=== PATIENT | male | born 1940 | race Caucasian/White ===

== ENCOUNTER 2016-11-06 18:25 | Emergency (ER) | payer BC ==
[2016-11-06] MEDS ORDERED: BSS OPTH.SOL* BTL ONE (19:01)
[2016-11-06] MEDS ORDERED: Tetracaine 0.5% OPTH.SOL 4 ML* 1 DROP BTL ONE (19:01)
[2016-11-06] MEDS ORDERED: Fluorescein Sodium TOPICAL* 1 MG TEST ONE (19:01)
[2016-11-06 19:02] VITALS: BP 136/62
--- NOTE | 2016-11-06 19:14 | UC ---
Eye Complaint HPI - HPI Summary HPI Summary: 76 y/o male presents to the urgent care c/o LF eye irritation since this morning. He reports this morning when he woke up, he felt something in his eye and since then he has been rubbing his eye. Now he has a yellowish eye discharge. He denies pain, photophobia, BARBA, SOB, chest pain, N/V/D. - History of Current Complaint Chief Complaint: UCEye Stated Complaint: LEFT EYE IRRITATION Time Seen by Provider: 11/06/16 18:54 Hx Obtained From: Patient Onset/Duration: Sudden Onset, Lasting Hours Timing: Constant Severity Initially: Mild Severity Currently: Moderate Pain Intensity: 0 Pain Scale Used: 0-10 Numeric Location of Injury: Conjunctiva Character: Foreign Body Sensation Aggravating Factor(s): Blinking Alleviating Factor(s): Nothing Associated Signs And Symptoms: Positive: Drainage (Purulent). Negative: Photophobia, Vision Impairment Right, Vision Impairment Left, Fever, Swelling Related History: Foreign Body - Risk Factors Penetrating Injury Risk Factor: Negative Globe Rupture Risk Factors: Negative Acute Glaucoma Risk Factors: Negative Optic Artery Occlusion Risk Factors: Negative - Allergies/Home Medications Allergies/Adverse Reactions: Allergies Allergy/AdvReac Type Severity Reaction Status Date / Time No Known Allergies Allergy Verified 11/06/16 18:57 Home Medications: Home Medications 2 Shots For Cancer 1 dose INJ SEE INSTRUCTIONS 11/06/16 [History Confirmed 11/06] PMH/Surg Hx/FS Hx/Imm Hx Previously Healthy: Yes Cardiovascular History: Hypertension - Surgical History Surgical History: Yes Surgery Procedure, Year, and Place: Partial Bowel Removal, 2005, [facility]; Herniorrhaphy - Family History Known Family History: Positive: Unknown - Social History Occupation: Retired Lives: With Family Alcohol Use: Rare Substance Use Type: None Smoking Status (MU): Never Smoked Tobacco - Immunization History Most Recent Influenza Vaccination: [id number] Review of Systems Constitutional: Negative Skin: Negative Eyes: Drainage - yellowish discharge, Eye Redness, Other - foreing body sensation ENT: Negative Respiratory: Negative Cardiovascular: Negative Gastrointestinal: Negative Genitourinary: Negative Motor: Negative Neurovascular: Negative Musculoskeletal: Negative Neurological: Negative Psychological: Negative All Other Systems Reviewed And Are Negative: Yes Physical Exam Triage Information Reviewed: Yes Appearance: Well-Appearing, No Pain Distress, Well-Nourished Vital Signs: Initial Vital Signs Temp 99.4 F 11/06/16 18:49 Pulse 69 11/06/16 18:49 Resp 14 11/06/16 18:49 BP 136/62 11/06/16 18:49 Pulse Ox 97 11/06/16 18:49 Vital Signs Reviewed: Yes Eyes: Positive: Conjunctiva Inflamed - PERRLA, EOMI, fundus grossly nornal, Left eye with conjunctiva inflamed and yellowish discharge. Vision 20/20 with glasses. RT eye conjunctiva clear. ENT Exam: Normal ENT: Positive: Normal ENT inspection, Hearing grossly normal, Pharynx normal, TMs normal Neck exam: Normal Neck: Positive: Supple, Nontender, No Lymphadenopathy Respiratory Exam: Normal Respiratory: Positive: Chest non-tender, Lungs clear, Normal breath sounds Cardiovascular Exam: Normal Cardiovascular: Positive: RRR, No Murmur, Pulses Normal Abdominal Exam: Normal Abdomen Description: Positive: Nontender, No Organomegaly, Soft Bowel Sounds: Positive: Present Musculoskeletal Exam: Normal Musculoskeletal: Positive: Strength Intact, ROM Intact, No Edema Neurological Exam: Normal Psychological Exam: Normal Skin Exam: Normal Eye Complaint Course/Dx - Course Course Of Treatment: LF eye irritation with foreign body sensation: Hx obtained. PE abnormal finding: PERRLA, EOMI, fundus grossly nornal, Left eye with conjunctiva inflamed and yellowish discharge. Vision 20/20 with glasses. RT eye conjunctiva clear. No foreign body observed with naked eye. Tetracaine ophthalmic drop place on Pt left eye, flurecein stain applied on eye, Eye observed under the UV light and small corneal abrasion observe on medial side of conjunctiva. Upper eye lid flipped and foreing body removed. Patient tolerated well procedure. Pt Rx erythromycin ophthalmic ointment TID x 3 days and advised if symptoms do not improve or develops pain, photophobia or visual disturbances to return to the urgent care or f/u with opthalmologist for furhter evaluation and treatment. Pt understood and agreed. - Differential Dx/Diagnosis Differential Diagnosis/HQI/PQRI: Conjunctivitis, Corneal Abrasion, Foreign Body , Penetrating Injury, Periorbital Cellulitis, Uveitis Provider Diagnoses: Corneal abrassion, LF eye with foreign body Discharge - Discharge Plan Condition: Stable Disposition: HOME Prescriptions: Erythromycin OPHTH.OINT* [Ilotycin OPHTH.OINT*] 1 applic LEFT EYE BEDTIME #1 ophth.oint Patient Education Materials: Corneal Abrasion (ED) Referrals: [facility] [place] [facility] [Outside] No Primary Care Phys,NOPCP [Medical Doctor] - Additional Instructions: please apply ophthalmic ointment as directed. Please if any signs of pain, photophobia, swelling develops return to the urgent care or f/u with magnetizer for further evaluation and treatment.
== END 2016-11-06 19:51 | disposition home or self-care (01) ==
LOC: UCCORT 18:25
DX: T15.02XA Foreign body in cornea, left eye, initial encounter (principal); I10 Essential (primary) hypertension; X58.XXXA Exposure to other specified factors, initial encounter; Y92.9 Unspecified place or not applicable
CPT/HCPCS: 99211; A9270-GY; G0463

== ENCOUNTER 2017-06-17 09:51 | Emergency (ER) | payer BC, MEDICARE ==
--- NOTE | 2017-06-17 12:10 | UC ---
Upper Extremity HPI - HPI Summary HPI Summary: Pt presents with c/o right wrist redness and tenderness at snuff box with red streaking that extends to elbow. Pt reports that he fell 1 week ago with FOOSH. Denies any break in skin, laceration to the area - History of Current Complaint Chief Complaint: UCUpperExtremity Stated Complaint: LEFT ARM COMPLAINT Time Seen by Provider: 06/17/17 12:02 Hx Obtained From: Patient ?: No Onset/Duration: Sudden Onset Severity Initially: Mild Severity Currently: Mild Location Of Pain: Is Discrete @ - right wrist Character: Dull, Aching Aggravating Factor(s): Movement Alleviating Factor(s): Nothing Associated Signs And Symptoms: Positive: Redness Related History: Dominant Hand Right - Risk Factors Non-Orthopedic Risk Factor: Negative DVT Risk Factors: Recent Trauma - FAll last week Compartment Syndrome Risk Factors: Pain - Allergies/Home Medications Allergies/Adverse Reactions: Allergies Allergy/AdvReac Type Severity Reaction Status Date / Time No Known Allergies Allergy Verified 06/17/17 10:29 Home Medications: Home Medications Atorvastatin* [Lipitor 10 MG*] 1 tab EVERY OTHER DAY 06/17/17 [History Confirmed 06/17/17] Carvedilol TAB* [Coreg TAB*] 12.5 mg DAILY 06/17/17 [History Confirmed 06/17/17] Lisinopril [Lisinopril 2.5 MG-] 5 mg DAILY 06/17/17 [History Confirmed 06/17/17] amLODIPine TAB* [Norvasc 5 mg TAB*] 10 mg DAILY 06/17/17 [History Confirmed ] PMH/Surg Hx/FS Hx/Imm Hx Previously Healthy: Yes Cardiovascular History: Hypertension - Surgical History Surgical History: Yes Surgery Procedure, Year, and Place: Partial Bowel Removal, 2005, [place]; Herniorrhaphy - Family History Known Family History: Positive: Unknown - Social History Occupation: Employed Full-time Lives: With Family Alcohol Use: None Substance Use Type: None Smoking Status (MU): Never Smoked Tobacco Have You Smoked in the Last Year: No - Immunization History Most Recent Influenza Vaccination: 2017 Review of Systems Constitutional: Negative Skin: Other - erythema, red streaking Eyes: Negative ENT: Negative Respiratory: Negative Cardiovascular: Negative Gastrointestinal: Negative Genitourinary: Negative Motor: Negative Neurovascular: Negative Musculoskeletal: Arthralgia - with Neurological: Negative Psychological: Negative Is Patient Immunocompromised?: No All Other Systems Reviewed And Are Negative: Yes Physical Exam Triage Information Reviewed: Yes Appearance: Well-Appearing Vital Signs: Initial Vital Signs Temp 97.8 F 06/17/17 10:31 Pulse 57 06/17/17 10:31 Resp 16 06/17/17 10:31 BP 160/84 06/17/17 10:31 Pulse Ox 100 06/17/17 10:31 Vital Signs Reviewed: Yes Eye Exam: Normal ENT Exam: Normal Dental Exam: Normal Neck exam: Normal Respiratory Exam: Normal Cardiovascular Exam: Normal Abdominal Exam: Normal Musculoskeletal Exam: Normal Neurological Exam: Normal Psychological Exam: Normal Skin Exam: Other - right wrist, pain at scaphod and trapezium with erythema and tenderness with movement and palpation, red streak that is 1 cm wide and extende the length of forearm anterior aspect to elbow. Erythematous streaking is non tender Upper Extremity Course/Dx - Course Course Of Treatment: I discussed with the pt the need to follow yup with his PCP. I discussed my concern for DVT and gout. I was unable to have ultrasound of affected area. With consultation with Dr. Orellana, pt was treated for cellulitis and superficial thrombophletis - Differential Dx/Diagnosis Differential Diagnosis/HQI/PQRI: Fracture (Closed), Other - gout, DVt, cellulitis Provider Diagnoses: superficial thrombophlebitis. cellulits. Gout? DVT Discharge - Discharge Plan Condition: Stable Disposition: HOME Prescriptions: Cephalexin CAP* [Keflex 500 CAP*] 500 mg PO Q12H #14 cap Patient Education Materials: Cellulitis (ED), Superficial Thrombophlebitis (ED) Referrals: Ginette Lares MD [Primary Care Provider] - As Soon As Possible Additional Instructions: Please note that your symptoms are of concern for a blood clot in your upper extremity. We were unable to to do an ultrasound of your area of concern. It is recommended that you have this examined immediately.
--- NOTE | 2017-06-17 12:54 | RAD ---
HISTORY: Right wrist pain, subacute trauma COMPARISONS: None VIEWS: 3, Frontal, lateral, and oblique views of the right wrist FINDINGS: BONE DENSITY: Normal. BONES: There is no displaced fracture. JOINTS: There is osteoarthritis of the first CMC joint and the radial-carpal and ulnar-carpal articulations. ALIGNMENT: There is no dislocation. SOFT TISSUES: Unremarkable. OTHER FINDINGS: None. IMPRESSION: OSTEOARTHRITIS. NO ACUTE OSSEOUS INJURY. IF SYMPTOMS PERSIST, RECOMMEND REPEAT IMAGING.
[2017-06-17 13:28] VITALS: BP 152/82
== END 2017-06-17 13:30 | disposition home or self-care (01) ==
LOC: UCCORT 09:51
DX: I80.9 Phlebitis and thrombophlebitis of unspecified site (principal); M19.031 Primary osteoarthritis, right wrist; L03.113 Cellulitis of right upper limb; I82.621 Acute embolism and thrombosis of deep veins of right upper extremity; I10 Essential (primary) hypertension
CPT/HCPCS: 99212; G0463

== ENCOUNTER 2018-06-30 10:18 | Emergency (ER) | payer BC, MEDICARE ==
[2018-06-30 12:51] VITALS: BP 137/64
--- NOTE | 2018-06-30 13:07 | UC ---
Throat Pain/Nasal Evgeny HPI - HPI Summary HPI Summary: 77-year-old male comes in with a chief complaint of clogged up sinuses yellow- green rhinorrhea cough or sputum production for several days. Feels like is heard some wheezing. Been using Vicks which does help with his congestion. When he is laying down at night that makes the coughing worse. Does not feel short of breath. - History of Current Complaint Chief Complaint: UCRespiratory Stated Complaint: CONGESTION,COUGH Time Seen by Provider: 06/30/18 12:46 Pain Intensity: 0 - Allergies/Home Medications Allergies/Adverse Reactions: Allergies Allergy/AdvReac Type Severity Reaction Status Date / Time No Known Allergies Allergy Verified 06/30/18 12:47 Home Medications: Home Medications 2 Colon Cancer Shots MONTHLY 06/30/18 [History] PMH/Surg Hx/FS Hx/Imm Hx Previously Healthy: Yes Endocrine History: Dyslipidemia Cardiovascular History: Hypertension - Surgical History Surgical History: Yes Surgery Procedure, Year, and Place: Partial Bowel Removal, 2005, [place]; Herniorrhaphy - Family History Known Family History: Positive: Unknown - Social History Alcohol Use: None Substance Use Type: None Smoking Status (MU): Never Smoked Tobacco Have You Smoked in the Last Year: No - Immunization History Most Recent Influenza Vaccination: 2017 Review of Systems All Other Systems Reviewed And Are Negative: Yes Constitutional: Positive: Negative Skin: Positive: Negative Eyes: Positive: Negative ENT: Positive: Sore Throat, Nasal Discharge, Sinus Congestion, Sinus Pain/ Tenderness Respiratory: Positive: Cough Cardiovascular: Positive: Negative Gastrointestinal: Positive: Negative Motor: Positive: Negative Neurovascular: Positive: Negative Musculoskeletal: Positive: Negative Neurological: Positive: Negative Psychological: Positive: Negative Is Patient Immunocompromised?: No Physical Exam Triage Information Reviewed: Yes Appearance: No Pain Distress, Well-Nourished, Ill-Appearing - MILD Vital Signs: Initial Vital Signs Temp 98.7 F 06/30/18 12:46 Pulse 64 06/30/18 12:46 Resp 16 06/30/18 12:46 BP 137/64 06/30/18 12:46 Pulse Ox 100 06/30/18 12:46 Vital Signs Reviewed: Yes Eye Exam: Normal Eyes: Positive: Conjunctiva Clear ENT: Positive: Pharyngeal erythema, Nasal congestion, Nasal drainage, TMs normal Neck exam: Normal Neck: Positive: Supple Respiratory: Positive: Lungs clear, Normal breath sounds, No respiratory distress Cardiovascular: Positive: RRR Musculoskeletal Exam: Normal Musculoskeletal: Positive: Strength Intact, ROM Intact Neurological Exam: Normal Neurological: Positive: Alert, Muscle Tone Normal Psychological Exam: Normal Psychological: Positive: Age Appropriate Behavior Skin Exam: Normal Throat Pain/Nasal Course/Dx - Course Course Of Treatment: DISCUSSED VIRAL VERSES BACTERIAL INFECTION AND THE ROLE OF ANTIBIOTICS. THE PATIENT WISHES TO BE ON ANTIBIOTIC AT THIS TIME. - Differential Dx/Diagnosis Provider Diagnosis: Sinusitis Discharge - Sign-Out/Discharge Documenting (check all that apply): Patient Departure All imaging exams completed and their final reports reviewed: No Studies - Discharge Plan Condition: Stable Disposition: HOME Prescriptions: Amoxicillin/Clavulanate TAB* [Augmentin TAB 875*] 875 mg PO BID #20 tab Patient Education Materials: Sinusitis (ED) Referrals: Ginette Lares MD [Primary Care Provider] - Additional Instructions: FOLLOW UP WITH YOUR DOCTOR IF NOT COMPLETELY IMPROVED. GET RECHECKED SOONER WITH ANY WORSENING OF YOUR CONDITION OR QUESTIONS OR CONCERNS. - Billing Disposition and Condition Condition: STABLE Disposition: Home
== END 2018-06-30 13:13 | disposition home or self-care (01) ==
LOC: UCCORT 10:18
DX: J32.9 Chronic sinusitis, unspecified (principal); I10 Essential (primary) hypertension
CPT/HCPCS: 99212; G0463